=== PATIENT | female | born 1985 | race Caucasian/White ===

== ENCOUNTER 2016-07-08 22:20 | Emergency (ER) | payer OTHER ==
[~2016-07-08 22:20] MED LIST: Acetaminophen/HYDROcodone 325-5 MG Tab PO ONE; Ketorolac 10 MG Tab PO ONE
[2016-07-08] MEDS ORDERED: Alum Hydrox/Mag Hydrox/Simeth 30 ML, Lidocaine 2% 15 ML PO ONE ×2 (22:29)
[2016-07-08] MEDS ORDERED: Ketorolac 60 MG/2 ML SDV IM ONE (23:00)
--- NOTE | 2016-07-08 23:04 | EDM.PDOC ---
ED HPI GENERAL MEDICAL PROBLEM - General Chief Complaint: General Stated Complaint: abd pain Time Seen by Provider: 07/08/16 22:30 Source of Information: Reports: Patient History Limitations: Reports: No limitations - History of Present Illness INITIAL COMMENTS - FREE TEXT/NARRATIVE: Hillary is a 30 yo female who is brought into the ER, accompanied by her , with complaints of ongoing abdominal pain. She states the pain started last night in the mid abdominal area and states it is a sharp pain. Was seen by Dr. Ellsworth today in clinic and underwent multiple laboratory studies and ultrasound of the gallbladder. Ultrasound was negative along with all laboratory work. No elevation in LFT's or WBC. She was sent home on Protonix and Carafate to with concerns of peptic ulcer disease. She states the medications have not helped at all today. States she ate some chicken broth this evening, which seemed to make the pain intensify. States she has been a little nauseated with it. No emesis. Onset Date: 07/07/16 Duration: Constant Location: Reports: abdomen Improves with: Reports: None Worsens with: Reports: Eating Associated Symptoms: Reports: loss of appetite. Denies: chest pain, fever/ chills, nausea/vomiting - Related Data Allergies Allergy/AdvReac Type Severity Reaction Status Date / Time No Known Allergies Allergy Verified 07/08/16 22:27 Home Meds: Home Meds Fluticasone/Salmeterol [Advair 250-50 Diskus] 1 inh INH BID 07/08/16 [History] Past Medical History - Past Health History Medical/Surgical History: Denies Medical/Surgical History - Past Surgical History Musculoskeletal Surgical History: Reports: Arthroscopic knee Social & Family History - Tobacco Use Smoking Status *Q: Never Smoker Tobacco Use Within Last Twelve Months: No - Alcohol Use Alcohol Use Frequency: Socially - Recreational Drug Use Recreational Drug Use: No - Living Situation & Occupation Living situation: Reports: , with family ED ROS GENERAL - Review of Systems Review Of Systems: See Below Constitutional: Reports: chills, decreased appetite. Denies: fever HEENT: Reports: No symptoms Respiratory: Reports: No Symptoms Cardiovascular: Reports: No symptoms GI/Abdominal: Reports: Abdominal pain. Denies: Constipation, Diarrhea, Melena, Nausea, Vomiting : Reports: no symptoms Musculoskeletal: Reports: no symptoms Neurological: Reports: No Symptoms Psychiatric: Reports: No symptoms ED EXAM, GENERAL - Physical Exam Exam: See Below Exam Limited By: No limitations General Appearance: alert, no apparent distress Eye Exam: bilateral eye: EOMI Ears: normal external exam, normal canal, hearing grossly normal Nose: normal inspection, no blood Throat/Mouth: Normal inspection, Normal teeth, Normal gums, Normal oropharynx, Normal voice, No airway compromise Head: atraumatic, normocephalic Neck: normal inspection, supple Respiratory/Chest: no respiratory distress, lungs clear, normal breath sounds, no accessory muscle use Cardiovascular: normal peripheral pulses, regular rate, rhythm, no edema, no murmur GI/Abdominal: soft, no abnormal bruit, no mass, tender (RUQ), other (negative mcburney's point). No: distended, rigid, hepatomegaly, splenomegaly Extremities: normal inspection Neurological: alert, oriented, no motor/sensory deficits Psychiatric: normal affect, normal mood Skin Exam: Warm, Dry, Intact, Normal color, No rash Course - Vital Signs Last Recorded V/S: Last Vital Signs Temp 98.2 F 07/08/16 23:22 Pulse 103 H 07/08/16 23:22 Resp 18 07/08/16 23:22 BP 119/65 07/08/16 23:22 Pulse Ox 98 07/08/16 23:22 - Orders/Labs/Meds Meds: Medications Discontinued Medications Generic Name Dose Route Start Last Admin Trade Name [place] PRN Reason Stop Dose Admin Hydrocodone Bitart/Acetaminophen 2 packet 07/08/16 23:20 Take Home: Acetaminophen/Hydrocod, 2 Tab Pack PO 07/08/16 23:21 ONETIME ONE Al Hydroxide/Mg Hydroxide 30 0 ml 07/08/16 22:29 07/08/16 22:37 ml/ Lidocaine HCl 15 ml PO 07/08/16 22:30 30 ml ONETIME ONE Administration Ketorolac Tromethamine 60 mg 07/08/16 23:00 Toradol IM 07/08/16 23:01 ONETIME ONE Ketorolac Tromethamine 1 packet 07/08/16 23:20 Take Home: Ketorolac 10 Mg, 4 Tab Pack PO 07/08/16 23:21 ONETIME ONE Departure - Departure Time of Disposition: 23:30 Disposition: Home, Self-Care 01 Condition: good Clinical Impression: RUQ abdominal pain Instructions: HIDA (Hepatobiliary) Scan, Biliary Colic Referrals: Jose Ellsworth MD [Primary Care Provider] - Forms: ED Department Discharge Additional Instructions: 1) Increase water intake 2) Monitor diet as discussed 3) Toradol 10mg - 1 tablet every 6-8 hours as needed for discomfort 4) [place] 5/325 - 1 tablet ever 4-6 hours as needed for break thru pain 5) Will schedule HIDA scan in the morning and will call with appointment date and time 6) Monitor for fevers, vomiting, diarrhea or any new onset of symptoms, if any concerns... Recommend returning for reevaluation. - Problem List & Annotations (1) RUQ abdominal pain SNOMED Code(s): 085535461 Code(s): R10.11 - RIGHT UPPER QUADRANT PAIN Status: Acute Current Visit: Yes - Problem List Review Problem List Initiated/Reviewed/Updated: Yes - Assessment/Plan Plan: GI cocktail did not give any relief of discomfort tonight. 60mg of Toradol was given intramuscularly. Will discharge home with Toradol and [place] for discomfort. HIDA to be scheduled in the morning. Discussed signs and symptoms to watch for; fever, diarrhea, worsening pain or any new onset of concerns.. Recommend reevaluation.
[2016-07-08] MEDS ORDERED: Take Home: Ketorolac 10 MG Tab, 4 Tab Pack PO ONE (23:20)
[2016-07-08] MEDS ORDERED: Take Home: Acetaminophen/HYDROcodone 325-5 MG, 2 Tab Pack PO ONE (23:20)
== END 2016-07-08 23:40 | disposition home or self-care (01) ==
LOC: CC.ED 22:20
DX: R10.11 Right upper quadrant pain (principal)
CPT/HCPCS: 96372; 99283; A9270; J1885